=== PATIENT | male | born 1980 | race Caucasian/White ===

== ENCOUNTER → 2021-08-18 | Outpatient (CLI) | payer MEDICARE, OTHER ==
--- NOTE | 2021-08-18 17:17 | RAD ---
Three-view lumbar spine dated 08/18/2021. COMPARISON: None. INDICATION: Swelling and pain. FINDINGS: 3 views obtained. Sagittal alignment is anatomic. Vertebral body heights are maintained. Minimal endp late hypertrophic changes with mild hypertrophic change of the lower lumbar apophyseal joints. IVC fi lter in place. IMPRESSION: 1. No acute radiographic abnormality. 2. Mild lower lumbar spondylosis. A potential retrievable IVC filter is noted, and the referring physician is encouraged to ensure that a management plan for this filter is in place. If no such plan is present, referral to an interventi onal clinician on a non-emergent basis should be considered. The [employer] approp riateness criteria for placement and management of IVC filters can be found on the web at: www.[email or web address].org/[email or web address]-safety/appropriateness-criteria/interventional Electronically signed by: Addison Franco MD (08/18/2021 5:15 PM) [email or web address]
== END ==
LOC: RAD 16:06
PROVIDERS: ATTEND Internal Medicine
DX: M47.816 Spondylosis without myelopathy or radiculopathy, lumbar region (principal); R22.40 Localized swelling, mass and lump, unspecified lower limb
CPT/HCPCS: 72100